=== PATIENT | male | born 1950 | race Caucasian/White ===

== ENCOUNTER 2018-04-28 16:58 | Emergency (ER) | payer OTHER ==
--- NOTE | 2018-04-28 17:38 | RAD REPORT ---
EXAM DESCRIPTION: CT - Ct Stroke Brain Wo Cont - 04/28/2018 5:27 pm CLINICAL HISTORY: Right eye visual loss, history of CVA CLINICAL HISTORY: None. TECHNIQUE: Axial 5 millimeter thick images of the head were obtained without IV contrast. All CT scans are performed using dose optimization technique as appropriate and may include automated exposure control or mA/KV adjustment according to patient size. FINDINGS: No intracranial hemorrhage, mass, or cerebral edema. A 10 millimeter area of diminished at tenuation is seen in the anterior limb of the right internal capsule. Finding could represent acute n onhemorrhagic CVA. This location is not typical for visual loss. No other areas of possible acute CVA seen. Arterial and physiologic calcifications are present. No significant atrophy. No extra-axial fl uid collections. Hamm matter-white matter differentiation is preserved. Visualized portions of the mastoid air cells, paranasal sinuses, and orbits are unremarkable. Findings telephoned to the referring physician 5:34 p.m. IMPRESSION: No intracranial hemorrhage. Small area of diminished attenuation in the anterior limb right internal capsule could represent acut e CVA. This is not a typical location for a visual disturbance. No other acute CVA findings. Followup MR imaging can be obtained as warranted.
[2018-04-28] MEDS ORDERED: FOLIC ACID 5 MG/ML VIAL ONE (17:41)
[2018-04-28] MEDS ORDERED: NA CHLORIDE 0.9% 1,000 ML ONE (17:41)
[2018-04-28 17:43] LABS: Absolute Lymphocytes (CBC) 2.1 K/uL (0.7-4.9); Absolute Monocytes 0.5 K/uL (0.1-1.3); Absolute Neutrophil 4.9 K/uL (1.8-8.0); Basophils % 0.6 % (0-1.3); Eosinophils % 1.4 % (0-4.4); Hematocrit 45.6 % (39.6-49.0); Lymphocytes % 27.2 % (15.3-44.8); MCH 27.6 pg (27.0-35.0); MCV 81.2 fL (80-100); MPV 9.9 fL (7.6-11.3); Monocytes % 6.7 % (3.3-12.3); RBC Red Blood Cell Count 5.62 M/uL (4.33-5.43)
[2018-04-28 17:46] LABS: Protime INR 1.03
[2018-04-28] MEDS ORDERED: ASPIRIN 81 MG CHEWABLE TABLET ONE (17:56)
--- NOTE | 2018-04-28 17:56 | EDPHYS ---
Physician Documentation [facility] Name: Caleb Palacios Age: 67 yrs Sex: Male : 1950 Arrival Date: 04/28/2018 Time: 16:59 Bed 4 Private MD: ED Physician Rashard Partida HPI: 04/28 17:24 This 67 yrs old Male presents to ER via Ambulatory with complaints of Sudden von blurred vision-r eye. 17:24 The patient is experiencing decreased vision. Onset: The symptoms/episode von began/occurred just prior to arrival. Duration: the symptoms are continuous. Aggravated by nothing. Alleviated by nothing. Associated signs and symptoms: Pertinent positives: None. The patient has not experienced similar symptoms in the past. 17:29 Patient wears glasses. Severity of symptoms: At their worst the symptoms were mild in von the emergency department the symptoms are unchanged. Historical: - Allergies: 17:55 No Known Allergies; sg - Home Meds: 17:42 benazepril oral oral [Active]; amlodipine 10 mg tab 1 tab once daily [Active]; sg hydrochlorothiazide 12.5 mg Oral tab 1 tab once daily [Active]; aspirin 81 mg Oral chew 1 tab once daily [Active]; - PMHx: 17:42 Hypertension; Pre-Glaucoma; sg - PSHx: 17:55 None; sg - Immunization history:: Adult Immunizations up to date. - Social history:: Smoking status: Patient/guardian denies using tobacco. - Family history:: not pertinent. - Ebola Screening: : Patient negative for fever greater than or equal to 101.5 degrees Fahrenheit, and additional compatible Ebola Virus Disease symptoms Patient denies exposure to infectious person Patient denies travel to an Ebola-affected area in the 21 days before illness onset No symptoms or risks identified at this time. ROS: 17:24 Constitutional: Negative for fever, chills, and weight loss, ENT: Negative for injury, von pain, and discharge, Neck: Negative for injury, pain, and swelling, Cardiovascular: Negative for chest pain, palpitations, and edema, Respiratory: Negative for shortness of breath, cough, wheezing, and pleuritic chest pain, Abdomen/GI: Negative for abdominal pain, nausea, vomiting, diarrhea, and constipation, Back: Negative for injury and pain, : Negative for injury, bleeding, discharge, and swelling, MS/Extremity: Negative for injury and deformity, Skin: Negative for injury, rash, and discoloration, Neuro: Negative for headache, weakness, numbness, tingling, and seizure, Psych: Negative for depression, anxiety, suicide ideation, homicidal ideation, and hallucinations, Allergy/Immunology: Negative for hives, rash, and allergies, Endocrine: Negative for neck swelling, polydipsia, polyuria, polyphagia, and marked weight changes, Hematologic/Lymphatic: Negative for swollen nodes, abnormal bleeding, and unusual bruising. 17:24 Eyes: Positive for visual disturbance. 17:29 Eyes: Positive for ovn Exam: 17:24 Constitutional: This is a well developed, well nourished patient who is awake, alert, von and in no acute distress. Head/Face: Normocephalic, atraumatic. Eyes: Pupils equal round and reactive to light, extra-ocular motions intact. Lids and lashes normal. Conjunctiva and sclera are non-icteric and not injected. Cornea within normal limits. Periorbital areas with no swelling, redness, or edema. ENT: Nares patent. No nasal discharge, no septal abnormalities noted. Tympanic membranes are normal and external auditory canals are clear. Oropharynx with no redness, swelling, or masses, exudates, or evidence of obstruction, uvula midline. Mucous membranes moist. Neck: Trachea midline, no thyromegaly or masses palpated, and no cervical lymphadenopathy. Supple, full range of motion without nuchal rigidity, or vertebral point tenderness. No Meningismus. Chest/axilla: Normal chest wall appearance and motion. Nontender with no deformity. No lesions are appreciated. Cardiovascular: Regular rate and rhythm with a normal S1 and S2. No gallops, murmurs, or rubs. Normal PMI, no JVD. No pulse deficits. Respiratory: Lungs have equal breath sounds bilaterally, clear to auscultation and percussion. No rales, rhonchi or wheezes noted. No increased work of breathing, no retractions or nasal flaring. Abdomen/GI: Soft, non-tender, with normal bowel sounds. No distension or tympany. No guarding or rebound. No evidence of tenderness throughout. Back: No spinal tenderness. No costovertebral tenderness. Full range of motion. Skin: Warm, dry with normal turgor. Normal color with no rashes, no lesions, and no evidence of cellulitis. MS/ Extremity: Pulses equal, no cyanosis. Neurovascular intact. Full, normal range of motion. Neuro: Awake and alert, GCS 15, oriented to person, place, time, and situation. Cranial nerves II-XII grossly intact. Motor strength 5/5 in all extremities. Sensory grossly intact. Cerebellar exam normal. Normal gait. Psych: Awake, alert, with orientation to person, place and time. Behavior, mood, and affect are within normal limits. 17:24 Cardiovascular: Rate: normal, Rhythm: regular, Pulses: no pulse deficits are appreciated, Heart sounds: normal, Edema: is not appreciated, JVD: is not appreciated. 17:49 Neuro: Orientation: is normal, appropriate for stated age, no acute changes, Mentation: von is normal, appropriate for stated age, no acute changes, Memory: is normal, appropriate for stated age, no acute changes, Cranial nerves: grossly normal, is grossly normal based on the patient's age, no acute changes, Cerebellar function: is grossly normal, is grossly normal based on the patient's age, no acute changes, Motor: is normal, is grossly normal based on the patient's age, no acute changes, moves all fours, strength is normal, strength is 5/5 in all extremities, Sensation: no obvious gross deficits, Gait: is steady, seizure activity, is not displayed by the patient. Vital Signs: 17:06 BP 154 / 90; Pulse 65; Resp 16; Temp 97.3; Pulse Ox 98% on R/A; Weight 113.4 kg; Height la1 6 ft. 3 in. (190.50 cm); 18:08 BP 144 / 89; Pulse 56; Resp 17; Temp 97.3; Pulse Ox 99% on R/A; Pain 0/10; sg 19:14 BP 180 / 96; Pulse 54; Resp 16; Pulse Ox 99% on R/A; mt 19:55 BP 170 / 94; Pulse 63; Resp 16; Pulse Ox 99% on R/A; mt 17:06 Body Mass Index 31.25 (113.40 kg, 190.50 cm) la1 NIH Stroke Scale Scores: 17:19 NIHSS Score: 0 sg 18:09 NIHSS Score: 0 von [place] Coma Score: 18:08 Eye Response: spontaneous(4). Verbal Response: oriented(5). Motor Response: obeys sg commands(6). Total: 15. MDM: 17:10 Patient medically screened. [facility] [place] 17:30 Data reviewed: vital signs, nurses notes, lab test result(s), EKG, radiologic studies, [facility] [place] CT scan, doppler, plain films. 04/28 17:16 Order name: Basic Metabolic Panel; Complete Time: 18:33 cp 04/28 17:16 Order name: CBC with Diff; Complete Time: 18:33 cp 04/28 17:16 Order name: LFT's; Complete Time: 18:33 cp 02 17:16 Order name: Magnesium; Complete Time: 18:33 cp 04/28 17:16 Order name: NT PRO-BNP; Complete Time: 18:33 cp /02 17:16 Order name: PT-INR; Complete Time: 18:33 cp 02 17:13 Order name: CT Stroke Brain w/o Contrast; Complete Time: 18:33 bd 04/28 17:16 Order name: Troponin (emerg Dept Use Only); Complete Time: 18:33 cp 04/28 17:16 Order name: XRAY Chest (1 view); Complete Time: 18:33 cp 02 17:23 Order name: CRP; Complete Time: 18:33 von 04/28 17:23 Order name: ESR; Complete Time: 18:33 von /02 17:28 Order name: US Carotid Artery Bilateral [facility] [place] 04/28 17:16 Order name: EKG; Complete Time: 17:18 cp 04/28 17:16 Order name: Cardiac monitoring; Complete Time: 17:39 cp 04/28 17:16 Order name: EKG - Nurse/Tech; Complete Time: 17:39 cp 02 17:16 Order name: IV Saline Lock; Complete Time: 17:39 cp 02 17:16 Order name: Labs collected and sent; Complete Time: 17:39 cp /02 17:16 Order name: O2 Per Protocol; Complete Time: 17:39 cp /02 17:16 Order name: O2 Sat Monitoring; Complete Time: 17:39 cp Administered Medications: 17:38 Drug: foLIC Acid 1 mg Route: IVPB; Site: right antecubital; sg 17:40 Follow up: Response: No adverse reaction; IV Status: Completed infusion sg 17:39 Drug: NS 0.9% 1000 ml Route: IV; Rate: 1 bolus; Site: right antecubital; sg 19:08 Follow up: Response: No adverse reaction; IV Status: Completed infusion; IV Intake: sg 990ml 17:39 CANCELLED (Duplicate Order): Aspirin Chewable Tablet 324 mg PO once; 81 mg tablets x 4 von 17:54 Drug: Aspirin 81 mg Route: PO; sg 19:08 Follow up: Response: No adverse reaction sg 17:54 Drug: PlaVIX 75 mg Route: PO; sg 19:08 Follow up: Response: No adverse reaction sg Point of Care Testing: Blood Glucose: 17:14 Blood Glucose: 90 mg/dL; la1 Ranges: Critical Glucose Levels:Adult <50 mg/dl or >400 mg/dl <40 mg/dl or >180 mg/dl Disposition: 04/28/18 17:55 Transfer ordered to [facility]. 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 - Reason for transfer: Higher level of care. - Accepting physician is to [facility], neuro. - Condition is Fair. - Problem is new. - Symptoms are unchanged. NIH Stroke Scale - NIH Stroke Score Date: 04/28/2018 Time: 17:19 Total Score = 0 1a. Level of Consciousness (LOC) - 0(Alert) 1b. Level of Consciousness (LOC) (Year \T\ Age) - 0(Both) 1c. LOC Commands (Open \T\ Closes Eyes/Animal Care Worker) - 0(Both) 2. Best Gaze (Lateral Gaze Paresis) - 0(Normal) 3. Visual Field Loss - 0(No visual loss) 4. Facial Palsy - 0(Normal) 5a. Left Arm: Motor (10-second hold) - 0(No drift) 5b. Right Arm: Motor (10-second hold) - 0(No drift) 6a. Left Leg: Motor (5-second hold - always test supine) - 0(No drift) 6b. Right Leg: Motor (5-second hold - always test supine) - 0(No drift) 7. Limb Ataxia (finger/nose \T\ heel/santoyo - test with eyes open) - 0(Absent) 8. Sensory Loss (pinprick arms/legs/face) - 0(Normal) 9. Best Language: Aphasia (description/naming/reading) - 0(No aphasia) 10. Dysarthria (speech clarity - read or repeat words) - 0(Normal) 11. Extinction and Inattention (visual/tactile/auditory/spatial/personal) - 0(No abnormality) Initials: rayna NIH Stroke Scale - NIH Stroke Score Date: 04/28/2018 Time: 18:09 Total Score = 0 1a. Level of Consciousness (LOC) - 0(Alert) 1b. Level of Consciousness (LOC) (Year \T\ Age) - 0(Both) 1c. LOC Commands (Open \T\ Closes Eyes/Animal Care Worker) - 0(Both) 2. Best Gaze (Lateral Gaze Paresis) - 0(Normal) 3. Visual Field Loss - 0(No visual loss) 4. Facial Palsy - 0(Normal) 5a. Left Arm: Motor (10-second hold) - 0(No drift) 5b. Right Arm: Motor (10-second hold) - 0(No drift) 6a. Left Leg: Motor (5-second hold - always test supine) - 0(No drift) 6b. Right Leg: Motor (5-second hold - always test supine) - 0(No drift) 7. Limb Ataxia (finger/nose \T\ heel/santoyo - test with eyes open) - 0(Absent) 8. Sensory Loss (pinprick arms/legs/face) - 0(Normal) 9. Best Language: Aphasia (description/naming/reading) - 0(No aphasia) 10. Dysarthria (speech clarity - read or repeat words) - 0(Normal) 11. Extinction and Inattention (visual/tactile/auditory/spatial/personal) - 0(No abnormality) Initials: von Signatures: Dispatcher [employer] EDMS Romain Alexis RN RN Rashard Lopez MD MD cha Page, Corey, PA PA cp Davies, Jonathon RN RN jd3 Corrections: (The following items were deleted from the chart) 17:39 17:39 Aspirin Chewable Tablet 324 mg PO once; 81 mg tablets x 4 ordered. von longoria 20:31 17:55 04/28/2018 17:55 Transfer ordered to [facility]. jd3 Diagnosis is Cerebral infarction - visual changes, acute to subacute right internal capsule ischemic infarct. Reason for transfer: Higher level of care. Accepting physician is to [facility], neuro. Condition is Fair. Problem is new. Symptoms are unchanged. von
--- NOTE | 2018-04-28 17:56 | ER ---
Nurse's Notes [facility] Name: Caleb Palacios Age: 67 yrs Sex: Male : 1950 Arrival Date: 04/28/2018 Time: 16:59 Bed 4 Private MD: Diagnosis: Cerebral infarction-visual changes, acute to subacute right internal capsule ischemic infarct Presentation: 04/28 17:14 Presenting complaint: Patient states: I was driving and suddenly felt a twitch in my la1 right and now it seems like there is a cloud in my vision. Transition of care: patient was not received from another setting of care. Onset of symptoms was April 28, 2018 at 14:30. Risk Assessment: Do you want to hurt yourself or someone else? Patient reports no desire to harm self or others. Initial Sepsis Screen: Does the patient meet any 2 criteria? No. Patient's initial sepsis screen is negative. Does the patient have a suspected source of infection? No. Patient's initial sepsis screen is negative. Care prior to arrival: None. 17:14 Method Of Arrival: Ambulatory la1 17:14 Acuity: ADONIS 2 la1 Historical: - Allergies: 17:55 No Known Allergies; sg - Home Meds: 17:42 benazepril oral oral [Active]; amlodipine 10 mg tab 1 tab once daily [Active]; sg hydrochlorothiazide 12.5 mg Oral tab 1 tab once daily [Active]; aspirin 81 mg Oral chew 1 tab once daily [Active]; - PMHx: 17:42 Hypertension; Pre-Glaucoma; sg - PSHx: 17:55 None; sg - Immunization history:: Adult Immunizations up to date. - Social history:: Smoking status: Patient/guardian denies using tobacco. - Family history:: not pertinent. - Ebola Screening: : Patient negative for fever greater than or equal to 101.5 degrees Fahrenheit, and additional compatible Ebola Virus Disease symptoms Patient denies exposure to infectious person Patient denies travel to an Ebola-affected area in the 21 days before illness onset No symptoms or risks identified at this time. Screenin:20 Abuse screen: Denies threats or abuse. Denies injuries from another. Nutritional sg screening: No deficits noted. Tuberculosis screening: No symptoms or risk factors identified. Never had TB. Fall Risk None identified. 17:25 The patient has not been NPO before screening. The patient is alert, able to follow sg commands. The patient does not exhibit slurred or garbled speech The patient is not exhibiting difficulty speaking. The patient does not exhibit difficulty understanding words. The patient is able to swallow own secretions with no drooling or need for suction. Patient tolerated one teaspoon of water. No drooling, immediate coughing, gurgling, or clearing of the throat was noted. The patient tolerated 90mL of water. No drooling, immediate coughing, gurgling, or clearing of the throat was noted. The patient passed the bedside swallow screening. Oral medications may be given as ordered. Contact Physician for further diet orders. Provider notified of bedside swallow screening results: Rashard Partida MD. Assessment: 17:19 General: Appears in no apparent distress. well groomed, well developed, well nourished, sg Behavior is calm, cooperative, appropriate for age. Pain: Denies pain. Neuro: Level of Consciousness is awake, alert, obeys commands, Oriented to person, place, time, situation, [employer] Teacher are equal bilaterally Moves all extremities. Full function Gait is steady, Speech is normal, Facial symmetry appears normal, Pupils are PERRLA, Reports vision described as being cloudy, almost like ice is covering my eye. Cardiovascular: Heart tones S1 S2 present Capillary refill is brisk in bilateral fingers Patient's skin is warm and dry. Chest pain is denied. Respiratory: Airway is patent Respiratory effort is even, unlabored, Respiratory pattern is regular, symmetrical. 17:19 GI: No signs and/or symptoms were reported involving the gastrointestinal system. : sg No signs and/or symptoms were reported regarding the genitourinary system. EENT: Eyes are tearing on right eye Sclera/Cornea are reddened in right eye Nares are clear bilaterally Throat is clear. Derm: Skin is pink, warm \T\ dry. Musculoskeletal: No signs and/or symptoms reported regarding the musculoskeletal system. 18:30 Reassessment: pt and pt family updated on POC and need for transfer, at sg bedside updating pt and pt family. 18:40 Reassessment: Patient appears in no apparent distress at this time. Patient and/or sg family updated on plan of care and expected duration. Pain level reassessed. attempt to call report, transfer center requests a call back for reports at 1920 for pt report. 19:40 Reassessment: Patient appears in no apparent distress at this time. No changes from jd3 previously documented assessment. Patient and/or family updated on plan of care and expected duration. Pain level reassessed. Patient is alert, oriented x 3, equal unlabored respirations, skin warm/dry/pink. 20:09 Reassessment: Patient appears in no apparent distress at this time. No changes from jd3 previously documented assessment. Patient and/or family updated on plan of care and expected duration. Pain level reassessed. Patient is alert, oriented x 3, equal unlabored respirations, skin warm/dry/pink. report called to Greta BELL at [facility] and transfer form signed. 20:29 Reassessment: Patient appears in no apparent distress at this time. Patient and/or jd3 family updated on plan of care and expected duration. Pain level reassessed. Patient is alert, oriented x 3, equal unlabored respirations, skin warm/dry/pink. report given to EMS. Vital Signs: 17:06 BP 154 / 90; Pulse 65; Resp 16; Temp 97.3; Pulse Ox 98% on R/A; Weight 113.4 kg; Height la1 6 ft. 3 in. (190.50 cm); 18:08 BP 144 / 89; Pulse 56; Resp 17; Temp 97.3; Pulse Ox 99% on R/A; Pain 0/10; sg 19:14 BP 180 / 96; Pulse 54; Resp 16; Pulse Ox 99% on R/A; mt 19:55 BP 170 / 94; Pulse 63; Resp 16; Pulse Ox 99% on R/A; mt 17:06 Body Mass Index 31.25 (113.40 kg, 190.50 cm) la1 [place] Coma Score: 18:08 Eye Response: spontaneous(4). Verbal Response: oriented(5). Motor Response: obeys commands(6). Total: 15. NIH Stroke Scale Scores: 17:19 NIHSS Score: 0 18:09 NIHSS Score: 0 [facility] ED Course: 16:59 Patient arrived in ED. as 17:10 Rashard Partida MD is Attending Physician. [facility] 17:10 Initial lab(s) drawn, by ga, sent to lab. Inserted saline lock: 20 gauge in right sg antecubital area, using aseptic technique. Blood collected. 17:15 Triage completed. la1 17:15 Arm band placed on right wrist. la1 17:18 Romain Alexis, RN is Primary Nurse. sg 17:29 CT Stroke Brain w/o Contrast In Process Unspecified. EDMS 17:35 XRAY Chest (1 view) In Process Unspecified. EDMS 17:39 EKG done, by ED staff, reviewed by Rashard Partida MD. jb1 18:52 US Carotid Artery Bilateral In Process Unspecified. EDMS 18:57 Ultrasound completed. Patient tolerated well. sg3 19:54 Albin Galdamez, RN is Primary Nurse. jd3 20:29 Patient has correct armband on for positive identification. Bed in low position. Call jd3 light in reach. Side rails up X2. 20:30 No provider procedures requiring assistance completed. Patient transferred, IV remains jd3 in place. Administered Medications: 17:38 Drug: foLIC Acid 1 mg Route: IVPB; Site: right antecubital; sg 17:40 Follow up: Response: No adverse reaction; IV Status: Completed infusion sg 17:39 Drug: NS 0.9% 1000 ml Route: IV; Rate: 1 bolus; Site: right antecubital; sg 19:08 Follow up: Response: No adverse reaction; IV Status: Completed infusion; IV Intake: sg 990ml 17:39 CANCELLED (Duplicate Order): Aspirin Chewable Tablet 324 mg PO once; 81 mg tablets x 4 von 17:54 Drug: Aspirin 81 mg Route: PO; sg 19:08 Follow up: Response: No adverse reaction sg 17:54 Drug: PlaVIX 75 mg Route: PO; sg 19:08 Follow up: Response: No adverse reaction sg Point of Care Testing: Blood Glucose: 17:14 Blood Glucose: 90 mg/dL; la1 Ranges: Intake: 19:08 IV: 990ml; Total: 990ml. sg Outcome: 17:55 ER care complete, transfer ordered by . [facility] 20:30 Transferred by ground EMS to [facility], Transfer form completed. jd3 X-rays sent w/ patient. 20:30 Condition: stable 20:30 Instructed on the need for transfer, Demonstrated understanding of instructions. 20:31 Patient left the ED. jd3 NIH Stroke Scale - NIH Stroke Score Date: 04/28/2018 Time: 17:19 Total Score = 0 1a. Level of Consciousness (LOC) - 0(Alert) 1b. Level of Consciousness (LOC) (Year \T\ Age) - 0(Both) 1c. LOC Commands (Open \T\ Closes Eyes/Rn Home Care) - 0(Both) 2. Best Gaze (Lateral Gaze Paresis) - 0(Normal) 3. Visual Field Loss - 0(No visual loss) 4. Facial Palsy - 0(Normal) 5a. Left Arm: Motor (10-second hold) - 0(No drift) 5b. Right Arm: Motor (10-second hold) - 0(No drift) 6a. Left Leg: Motor (5-second hold - always test supine) - 0(No drift) 6b. Right Leg: Motor (5-second hold - always test supine) - 0(No drift) 7. Limb Ataxia (finger/nose \T\ heel/santoyo - test with eyes open) - 0(Absent) 8. Sensory Loss (pinprick arms/legs/face) - 0(Normal) 9. Best Language: Aphasia (description/naming/reading) - 0(No aphasia) 10. Dysarthria (speech clarity - read or repeat words) - 0(Normal) 11. Extinction and Inattention (visual/tactile/auditory/spatial/personal) - 0(No abnormality) Initials: NIH Stroke Scale - NIH Stroke Score Date: 04/28/2018 Time: 18:09 Total Score = 0 1a. Level of Consciousness (LOC) - 0(Alert) 1b. Level of Consciousness (LOC) (Year \T\ Age) - 0(Both) 1c. LOC Commands (Open \T\ Closes Eyes/Rn Home Care) - 0(Both) 2. Best Gaze (Lateral Gaze Paresis) - 0(Normal) 3. Visual Field Loss - 0(No visual loss) 4. Facial Palsy - 0(Normal) 5a. Left Arm: Motor (10-second hold) - 0(No drift) 5b. Right Arm: Motor (10-second hold) - 0(No drift) 6a. Left Leg: Motor (5-second hold - always test supine) - 0(No drift) 6b. Right Leg: Motor (5-second hold - always test supine) - 0(No drift) 7. Limb Ataxia (finger/nose \T\ heel/santoyo - test with eyes open) - 0(Absent) 8. Sensory Loss (pinprick arms/legs/face) - 0(Normal) 9. Best Language: Aphasia (description/naming/reading) - 0(No aphasia) 10. Dysarthria (speech clarity - read or repeat words) - 0(Normal) 11. Extinction and Inattention (visual/tactile/auditory/spatial/personal) - 0(No abnormality) Initials: von Signatures: Dispatcher [employer] EDEphraim Mckee jb1 Romain Alexis RN RN sg Rashard Partida MD MD cha Martinez, Jaylon Hernadez, RN RN la1 Farzana Phelps mt, Jonathon, RN RN jd3 Xochilt Hopper 3 Corrections: (The following items were deleted from the chart) 20:09 19:40 Reassessment: Patient appears in no apparent distress at this time. No jd3 changes from previously documented assessment. Patient and/or family updated on plan of care and expected duration. Pain level reassessed. Patient is alert, oriented x 3, equal unlabored respirations, skin warm/dry/pink. report called to Greta BELL at [facility] and transfer form signed. jd3
[2018-04-28] MEDS ORDERED: CLOPIDOGREL 75 MG TABLET ONE (17:57)
--- NOTE | 2018-04-28 18:00 | RAD REPORT ---
EXAM DESCRIPTION: RAD - Chest Single View - 04/28/2018 5:43 pm CLINICAL HISTORY: Stroke protocol chest film COMPARISON: None. TECHNIQUE: AP portable chest image was obtained 1721 hour . FINDINGS: Lungs are clear. Heart and vasculature are normal. No measurable pleural effusion and no p neumothorax. No acute bony abnormality seen. No acute aortic findings suspected. IMPRESSION: No acute cardiopulmonary process.
[2018-04-28 18:12] LABS: ALT/SGPT 37 U/L (12-78); AST/SGOT 13 U/L (15-37); Albumin 3.6 g/dL (3.4-5.0); Alkaline Phosphatase 65 U/L (45-117); BUN Blood Urea Nitrogen 19 mg/dL (7-18); Bicarbonate 29 mmol/L (21-32); Bilirubin Direct 0.1 mg/dL (0-0.2); Bilirubin Total 0.6 mg/dL (0.2-1.0); Glucose Level 97 mg/dL (74-106); Magnesium 2.3 mg/dL (1.8-2.4); NT PRO-BNP 19 pg/mL (<125); Potassium 3.6 mmol/L (3.5-5.1); Protein, Total 7.2 g/dL (6.4-8.2); Sodium Level 142 mmol/L (136-145); Troponin (Emerg Dept Use Only) < 0.02 ng/mL (0.0-0.045)
--- NOTE | 2018-04-28 19:31 | RAD REPORT ---
EXAM DESCRIPTION: US - CP - 04/28/2018 6:52 pm CLINICAL HISTORY: Acute onset right visual loss COMPARISON: None. TECHNIQUE: Real-time sonographic evaluation of both carotid systems was performed. Hamm scale and Do ppler interrogation were performed with waveform tracing bilaterally. FINDINGS: Normal high resistance waveforms are noted in both external carotid arteries. The common c arotid arteries and internal carotid arteries show normal low resistance waveforms. Minimal soft plaquing in the right carotid bulb without significant luminal narrowing. No dissection is seen. No significant plaquing in the left carotid vasculature. Peak systolic and end diastolic mark ocity values and the ICA/CCA ratios are in the non-hemodynamically significant range. Antegrade flow seen in both vertebral arteries. Velocity values and ratios were recorded and are retained in the patient's imaging records. IMPRESSION: No significant atherosclerotic changes noted. No evidence of a hemodynamically significant stenosis.
--- NOTE | 2018-04-29 07:40 | EKG ---
Test Date: 2018-04-28 Test Time: 17:17:13 Plate Finisher: EPI MEASUREMENT RESULTS: Intervals: Rate: 60 OK: 132 QRSD: 88 QT: 424 QTc: 424 [employer]: P: 50 OK: 132 QRS: 54 T: 56 INTERPRETIVE STATEMENTS: Normal sinus rhythm Normal ECG Compared to ECG 12/28/2005 07:01:03 Sinus bradycardia no longer present Electronically Signed On 04-29-18 07:38:46 SUPERVISOR PIPELINES by Marco A Soliz
== END 2018-04-28 20:31 | disposition short-term general hospital (02) ==
LOC: ER 16:58
DX: I63.89 Other cerebral infarction (principal); I10 Essential (primary) hypertension; Z79.82 Long term (current) use of aspirin
CPT/HCPCS: 36415; 70450; 71045; 80048; 80076; 82962; 83735; 83880; 84484; 85025; 85610; 85652; 86140; 93005; 93880; 96361; 96374; 99285; J7030

== ENCOUNTER 2019-12-31 18:33 | Emergency (ER) | payer OTHER ==
--- OUTSIDE RECORDS SUMMARY | 2019-12-31 18:36 | XMS REPORT | Clinical Summary ---
:1950 Author Organization [facility] Address [address] [place] [address] Care Team Providers Name Role Phone Pcp, No Primary Care Provider Unavailable Allergies No Known Allergies Medications Medication Sig Dispensed Refills Start Date End Date Status aspirin 81 MG EC tablet Take 81 mg by 0 Active mouth daily. benazepril (LOTENSIN) 40 MG Take 40 mg by 0 Active tablet mouth daily. amLODIPine (NORVASC) 10 MG Take 10 mg by 0 Active tablet mouth daily. hydroCHLOROthiazide Take 12.5 mg 0 Active (HYDRODIURIL) 12.5 MG by mouth tablet daily. tadalafil (CIALIS) 5 MG Take 5 mg by 0 Active tablet mouth daily. TRAVATAN Z 0.004 % Drop 0 02/07/2018 Active ophthalmic drops Active Problems Problem Noted Date Blurry vision 04/28/2018 Family History Medical History Relation Name Comments Cancer Brother COPD Father Heart disease Father Heart disease Mother Kidney disease Mother Diabetes Sister Kidney disease Sister Relation Name Status Comments Brother Alive Father Mother Sister Social History Tobacco Use Types Packs/Day Years Used Date Never Smoker Smokeless Tobacco: Never Used Tobacco Cessation: Counseling Given: No Alcohol Use Drinks/Week oz/Week Comments Yes 2 Glasses of wine 1.2 weekends Sex Assigned at Date Recorded Not on file Job Start Date Occupation Industry Not on file Not on file Not on file Travel History Travel Start Travel End No recent travel history available. Last Filed Vital Signs Not on file Plan of Treatment Not on file Results Not on fileafter 12/30/2018 Insurance Payer Benefit Plan / Group Subscriber ID Type Phone A ddress MEDICARE MEDICARE PART A xxxxxxxxxx Medicare [facility] xxxxxxxxx CARE Advance Directives For more information, please contact:[place] [id number] [facility] Bed[facility] [place], [place] [phone] Code Status Date Activated Date Inactivated Comments Full Code 04/28/2018 10:31 PM This code status was determined by: Patient
--- OUTSIDE RECORDS SUMMARY | 2019-12-31 18:37 | XMS REPORT | Continuity of Care Document ---
:1950 Author Organization [facility] t Address [address] [place] [address] Care Team Providers Name Role Phone Pcp Primary Care Physician Unavailable Brianna DURÁN Attending Clinician Unavailable Brianna DURÁN Admitting Clinician Unavailable Problems Condition Condition Condition Status Onset Resolution Last Treating Co mments Source Name Details Category Date Date Treatment Clinician Date Blurry Blurry Disease Active 2017-05 [facility] vision vision 06-29 [facility] - 00:00: Medical 00 [place] Allergies, Adverse Reactions, Alerts This patient has no known allergies or adverse reactions. Family History Family Member Diagnosis Comments Start Date Stop Date Source Natural brother Cancer [place] Natural father COPD [facility] Natural father Heart disease [facility] Natural mother Heart disease [facility] Natural mother Kidney disease [facility] Natural sister Diabetes [facility] Natural sister Kidney disease [facility] Social History Social Habit Start Date Stop Date Quantity Comments Source Sex Assigned At [facility] Alcohol Comment 2018-04-28 2018-04-28 weekends [facility] 00:00:00 00:00:00 [facility] Smoking Status Start Date Stop Date Source Never smoker [facility] Medications Ordered Filled Start Stop Current Ordering Indication Dosage Frequency Signature Comments Components Source Medication Medication Date Date Medication? Clinician (SIG) Name Name tadalafil 2017-05 Yes 5mg QD Take 5 mg [facility] (CIALIS) 5 06-29 by mouth [facility] - MG tablet 22:40: daily. Medica l [address] [place] [address] aspirin 81 2017-05 Yes 81mg QD Take [address] MG EC 2-02 by mouth [facility] - tablet 22:36: daily. Medical 21 [place] benazepril 2017-05 Yes 40mg QD Take [address] (LOTENSIN) 2-02 by mouth [facility] - 40 MG 22:36: daily. Medical tablet 21 [place] amLODIPine 2017-05 Yes 10mg QD Take [address] (NORVASC) 2-02 by mouth [facility] - 10 MG 22:36: daily. Medical tablet 21 [place] hydroCHLORO 2017-05 Yes 12.5mg QD Take 12.[address] [facility] thiazide 2-02 mg by [facility] - (HYDRODIURI 22:36: mouth Medic al L) 12.5 MG 21 daily. Center tablet TRAVATAN Z Yes [facility] 0.004 % 02-07 [facility] - Drop 00:00: Medical ophthalmic 00 Center drops Procedures This patient has no known procedures. Results Test Description Test Time Test Comments Results Result Comments Source CSF CULTURE + GRAM STAIN 2018-05-04 11:37:00 Test Item Value Reference Range Interpretation Comme nts CULTURE (BEAKER) (test code = 1095) No growth GRAM STAIN RESULT (BEAKER) (test code = 1123) No WBCs GRAM STAIN RESULT (BEAKER) (test code = 26482) No organisms seen [id number] 18:10:00Medical Cytology Report Case: [id number] Authorizing Provider: Sisi Haas Collected: 05/01/2018 1539 MD Sondra Ordering Location: [address] Received: 05/02/2018 1005 Service Pathologist: Beck Alvarez MD Specimen: CSF CEREBROSPINAL FLUID (CYT OSPINS): - NEGATIVE FOR MALIGNANCY Signing Pathologist Direct Phone Line: [phone] signed by Beck Alvarez MD on 05/02/2018 at 6:10 [id number] visionCEREBROSPINALFLUID0.5 mls colorless; 2 cytospinsCollected: [id number]: [id number] [facility], Department of Pathology, [address] [place] [address], [place] [address], [facility], Department of [facility]ology, [address] [place] [address], [facility], [facility] of [facility], [address] [place] [address], QMGV CYTOMETRY [id number] 11:09:00 Test Item Value Reference Range Interpretation Comments FLOW CYTOMETRY RESULT See Separate Report POINTER (BEAKER) (test code = 2758) FLOW CYTOMETRY AP CASE # [id number] (BEAKER) (test code = 2759) FLOW [id number] 09:21:00Flow Cytometry Report Case: [id number] Authorizing Provider: Sisi Haas Collected: 05/01/2018 Юлия Amaro MD Ordering Location: [address] Received: 05/01/2018 1592 Service Pathologist: Sherwin Cardoza MD Specimen: Other CSF, FLOW CYTOMETRY:HEMATOLYMPHOID EVENTS ARE SCARCE.CORRELATION WITH MORPHOLOGIC FINDINGS REQUIRED.Electronically signedby Sherwin Cardoza MD on 05/02/2018 at 9:21 [id number] changesCSFCD8, surface-kappa, CD56, surface-lambda, CD5, CD19, CD10, CD3, CD20, CD4, [id number] Viability: 99.8% Blasts: Not identified.Lymphocytes: Bright CD45+ lymphocytes comprise less than 1% of total cells and are almost entirely comprised of T cells with a CD4:CD8 ratio of 3.7. B cells are virtually absent.Myeloid/monocytic populations: No significant population identified. The remaining events analyzed represent nonviable cells, non-hematolymphoid cells, and/or debris. These tests were developed and their performance charac teristics determined by [facility]. They have not been cleared or approved by the U.S. Food andDrug Administration. The FDA has determined that such clearance or approval is not necessary. It should not be regarded as investigational or for research. This laboratory is certified under the Clinical Laboratory Improvement Amendments of 1988 ("CLIA") as qualified to perform high- complexity clinical testing.GLUCOSE, [id number] 16:15:00 Test Item Value Reference Range Interpretation Comments GLUCOSE CSF (BEAKER) (test code = 56 mg/dL 40-70 406) PROTEIN, [id number] 16:15:00 Test Item Value Reference Range Interpretation Comments PROTEIN CSF (BEAKER) (test code = 37 mg/dL 15-45 378) CSF CELL COUNT [id number] 16:14:00 Test Item Value Reference Range Interpretation Comments APPEARANCE CSF (BEAKER) Clear Clear (test code = 407) COLOR CSF (BEAKER) Colorless Colorless (test code = 408) RBC CSF (BEAKER) (test 450 /cu mm 0-5 H code = 409) WBC CSF (BEAKER) (test 0 /cu mm <=5 code = 1020) RBCS FRESH (BEAKER) 75% Fresh, 25% (test code = 1444) Crenated NUMBER OF CELLS DIFF'D 0 (BEAKER) (test code = 1591) TUBE NUMBER CSF 1 (BEAKER) (test code = 2678) PERIPHERAL BLOOD SMEAR - HOLD [id number] 19:16:00 Test Item Value Reference Range Interpretation Comments PERIPHERAL SMEAR SAVE saved 2 smea rs are prepared (BEAKER) (test code = 1815) [id number] 18:45:00 Test Item Value Reference Range Interpretation Comments RPR SCREEN (BEAKER) (test code = Nonreactive Nonreactive 420) VITAMIN B12 AND [id number] 12:13:00 Test Item Value Reference Range Interpretation Comments VITAMIN B12 (BEAKER) (test code = 495 pg/mL 213-816 774) FOLATE (BEAKER) (test code = 362) 13.3 ng/mL >=7.0 MR, MRA, BRAIN, WITHOUT [id number] 11:54:00Reason for exam:->Ischemic Stroke EvaluationFINAL REPORT MRA Head CLINICAL HISTORY: Ischemic Stroke, blurry vision, acute/subacute infarct right internal capsule on CT TECHNIQUE: MRA of the head utilizing 3-D xtab-qa-mltoag technique, with 3-D reconstructions. COMPARISON: None FINDINGS: There is no evidence for a hoopa of Cee proximal branch vessel occlusion. There is origin of the right posterior cerebral artery. No aneurysms are seen. IMPRESSION: No evidence for a major hoopa of Cee proximal branch vessel occlusion. MRA Neck CLINICAL HISTORY: Ischemic Stroke, blurry vision, acute/subacute infarct right internal capsule on CT TECHNIQUE: MRA of the neck utilizing 2-D and 3-D rrst-sq-kobqas technique, with 3-D reconstructions. COMPARISON: None FINDINGS: The carotid arteries in the neck are patent including their bifurcations. There is antegrade flow in the vertebral arteries in the neck. IMPRESSION: No evidence of hemodynamically significant stenosis in the cervical carotid or vertebral arteries by NASCET criteria. Signed: Kathy Shrestha Verified Date/Time: 04/29/2018 11:54:27 Reading Location: [address] Neuro Reading Room MR, MRA, NECK, WITHOUT IV [id number] 11:54:00Reason for exam:->Ischemic Stroke EvaluationFINAL REPORT MRA Head CLINICAL HISTORY: Ischemic Stroke, blurry vision, acute/subacute infarct right internal capsule on CT TECHNIQUE: MRA of the head utilizing 3-D zyro-wr-astqzj technique, with 3-D reconstructions. COMPARISON: None FINDINGS: There is no evidence for a hoopa of Cee proximal branch vessel occlusion. There is origin of the right posterior cerebral artery. No aneurysms are seen. IMPRESSION: No evidence for a major hoopa of Cee proximal branch vessel occlusion. MRA Neck CLINICAL HISTORY: Ischemic Stroke, blurry vision, acute/subacute infarct right internal capsule on CT TECHNIQUE: MRA of the neck utilizing 2-D and 3-D idyt-if-xkgpad technique, with 3-D reconstructions. COMPARISON: None FINDINGS: The carotid arteries in the neck are patent including their bifurcations. There is antegrade flow in the vertebral arteries in the neck. IMPRESSION: No evidence of hemodynamically significant stenosis in the cervical carotid or vertebral arteries by NASCET criteria. Signed: Kathy Shrestha Verified Date/Time: 04/29/2018 11:54:27 Reading Location: [address] Neuro Reading Room MR, BRAIN, WITHOUT [id number] 11:48:00Reason for exam:->Ischemic Stroke EvaluationFINAL REPORT MRI Brain without contrast Clinical History: Ischemic Stroke, blurry vision Technique: MRI of the brain utilizing axial T2, FLAIR, GRE, DWI; sagittal and coronal T1-weighted images. Comparisons: None available Findings: There is no evidence of acute infarct or hemorrhage. There is a chronic lacunar infarct in the right anterior basal ganglia. There are a few scattered nonspecific foci of FLAIR signal abnormality in the subcortical and periventricular white matter.There is mild generalized sulcal prominence without hydrocephalus, midline shift, or apparent mass effect. There are no extra-axial fluid collections. The craniocervical junction is preserved. The major intracranial flow-voids appear patent. There is fluid in the right mastoid air cells without visualized central nasopharyngeal obstruction. IMPRESSION: No evidence of acute infarct, hemorrhage, or hydr ocephalus. Chronic lacunar infarct right anterior basal ganglia. Signed: Kathy Shrestha MDReport Verified Date/Time: 04/29/2018 11:48:33 Reading Location: [facility] C013 Neuro Reading Room HEMOGLOBIN [id number] 10:00:00 Test Item Value Reference Range Interpretation Comments HEMOGLOBIN A1C (BEAKER) (test code = 5.3 % 4.3-6.1 368) TSH/FREE T4 IF [id number] 06:05:00 Test Item Value Reference Range Interpretation Comments THYROID STIMULATING HORMONE 2.26 uIU/mL 0.35-4.94 (BEAKER) (test code = 772) LIPID [id number] 05:45:00 Test Item Value Reference Range Interpretation Comments TRIGLYCERIDES (BEAKER) (test code = 102 mg/dL 540) CHOLESTEROL (BEAKER) (test code = 174 mg/dL 631) HDL CHOLESTEROL (BEAKER) (test code 49 mg/dL = 976) LDL CHOLESTEROL CALCULATED (BEAKER) 105 mg/dL (test code = 633) Triglyceride Reference Range: Low Risk <150 Borderline 150-199 High Risk 200-499 Very High Risk >=500Cholesterol Reference Range: Low Risk <200 Borderline 200-239 High Risk >240HDL Cholesterol Reference Range: Low Risk >=60 High Risk <40LDL Cholesterol Reference Range: Optimal <100 Near Optimal 100-129 Borderline 130-159 High 160-189 Very High >=190BASIC METABOLIC [id number] 05:45:00 Test Item Value Reference Range Interpretation Comments SODIUM (BEAKER) 140 meq/L 136-145 (test code = 381) POTASSIUM (BEAKER) 3.4 meq/L 3.5-5.1 L (test code = 379) CHLORIDE (BEAKER) 108 meq/L 98-107 H (test code = 382) CO2 (BEAKER) (test 25 meq/L 22-29 code = 355) BLOOD UREA NITROGEN 15 mg/dL 7-21 (BEAKER) (test code = 354) CREATININE (BEAKER) 0.98 mg/dL 0.57-1.25 (test code = 358) GLUCOSE RANDOM 98 mg/dL 70-105 (BEAKER) (test code = 652) CALCIUM (BEAKER) 8.6 mg/dL 8.4-10.2 (test code = 697) EGFR (BEAKER) (test 76 mL/min/1.73 ESTIMA GREG GFR IS code = 1092) sq m NOT ACCURATE CREATININE CLEARANCE IN PREDICTING GLOMERULAR FILTRATION RATE . ESTIMATED GFR I S NOT APPLICABLE FOR DIALYSIS PATIEN TS. CBC W/PLT COUNT & AUTO [id number] 05:13:00 Test Item Value Reference Range Interpretation Comments WHITE BLOOD CELL COUNT (BEAKER) 7.7 K/ L 3.5-10.5 (test code = 775) RED BLOOD CELL COUNT (BEAKER) 5.40 M/ L 4.63-6.08 (test code = 761) HEMOGLOBIN (BEAKER) (test code = 14.8 GM/DL 13.7-17.5 410) HEMATOCRIT (BEAKER) (test code = 45.2 % 40.1-51.0 411) MEAN CORPUSCULAR VOLUME (BEAKER) 83.7 fL 79.0-92.2 (test code = 753) MEAN CORPUSCULAR HEMOGLOBIN 27.4 pg 25.7-32.2 (BEAKER) (test code = 751) MEAN CORPUSCULAR HEMOGLOBIN CONC 32.7 GM/DL 32.3-36.5 (BEAKER) (test code = 752) RED CELL DISTRIBUTION WIDTH 13.4 % 11.6-14.4 (BEAKER) (test code = 412) PLATELET COUNT (BEAKER) (test 217 K/CU MM 150-450 code = 756) MEAN PLATELET VOLUME (BEAKER) 11.5 fL 9.4-12.4 (test code = 754) NUCLEATED RED BLOOD CELLS 0 /100 WBC 0-0 (BEAKER) (test code = 413) NEUTROPHILS RELATIVE PERCENT 69 % (BEAKER) (test code = 429) LYMPHOCYTES RELATIVE PERCENT 22 % (BEAKER) (test code = 430) MONOCYTES RELATIVE PERCENT 8 % (BEAKER) (test code = 431) EOSINOPHILS RELATIVE PERCENT 1 % (BEAKER) (test code = 432) BASOPHILS RELATIVE PERCENT 0 % (BEAKER) (test code = 437) NEUTROPHILS ABSOLUTE COUNT 5.27 K/ L 1.78-5.38 (BEAKER) (test code = 670) LYMPHOCYTES ABSOLUTE COUNT 1.67 K/ L 1.32-3.57 (BEAKER) (test code = 414) MONOCYTES ABSOLUTE COUNT (BEAKER) 0.58 K/ L 0.30-0.82 (test code = 415) EOSINOPHILS ABSOLUTE COUNT 0.09 K/ L 0.04-0.54 (BEAKER) (test code = 416) BASOPHILS ABSOLUTE COUNT (BEAKER) 0.02 K/ L 0.01-0.08 (test code = 417) IMMATURE GRANULOCYTES-RELATIVE 0 % 0-1 PERCENT (BEAKER) (test code = 5701)
[2019-12-31] MEDS ORDERED: HYDROCODONE/APAP 5/325 MG TAB ONE (20:01)
[2019-12-31] MEDS ORDERED: TETANUS & DIPHTHERIA TOX,ADULT 0.5 ML VIAL ONE (20:01)
--- NOTE | 2019-12-31 20:44 | RAD REPORT ---
EXAM DESCRIPTION: RAD - Hand Left 2 View - 12/31/2019 8:26 pm CLINICAL HISTORY: injury, possible foreign body from catfish COMPARISON: No comparisons FINDINGS: No fracture is identified. There is no dislocation or periosteal reaction noted. No foreig n body or other soft tissue abnormality. IMPRESSION: No foreign body. No acute bone finding.
--- NOTE | 2019-12-31 21:43 | ER ---
Nurse's Notes [facility] Name: Caleb Palacios Age: 69 yrs Sex: Male : 1950 Arrival Date: 12/31/2019 Time: 18:50 Bed 15 Private MD: Diagnosis: Puncture Wound Left Hand Presentation: 12/30 19:31 Chief complaint: Patient states: he was fishing and got a saltwater catfish nakul in his bb left hand the pain is severe radiating up his left arm which occurred approx 2 hours ago. Coronavirus screen: At this time, the client does not indicate any symptoms associated with coronavirus-19. Ebola Screen: No symptoms or risks identified at this time. Initial Sepsis Screen: Does the patient meet any 2 criteria? No. Patient's initial sepsis screen is negative. Does the patient have a suspected source of infection? No. Patient's initial sepsis screen is negative. Risk Assessment: Do you want to hurt yourself or someone else? Patient reports no desire to harm self or others. Onset of symptoms was December 31, 2019. 19:31 Method Of Arrival: Ambulatory bb 19:31 Acuity: ADONIS 3 bb Triage Assessment: 19:33 General: Appears uncomfortable, Behavior is calm, cooperative. Pain: Complains of pain bb in left arm Pain currently is 9 out of 10 on a pain scale. Historical: - Allergies: 19:33 No Known Allergies; bb - Home Meds: 19:33 amlodipine 10 mg tab 1 tab once daily [Active]; aspirin 81 mg Oral chew 1 tab once bb daily [Active]; benazepril Oral [Active]; hydrochlorothiazide 12.5 mg Oral tab 1 tab once daily [Active]; - PMHx: 19:33 Hypertension; Pre-Glaucoma; bb - PSHx: 19:33 right eye surgery; C5; right knee surgery; bb - Immunization history:: Adult Immunizations up to date, Last tetanus immunization: unknown. - Social history:: Smoking status: Patient denies any tobacco usage or history of. Screenin:54 Abuse screen: Denies threats or abuse. Nutritional screening: No deficits noted. mt2 Tuberculosis screening: No symptoms or risk factors identified. Fall Risk None identified. Assessment: 19:30 General: Appears in no apparent distress. uncomfortable, Behavior is calm, cooperative, jb4 appropriate for age. Pain: Complains of pain in Left first web space Pain radiates to left arm Pain currently is 9 out of 10 on a pain scale. Quality of pain is described as aching. Neuro: Level of Consciousness is awake, alert, obeys commands, Oriented to person, place, time, situation. Cardiovascular: Patient's skin is warm and dry. Respiratory: Airway is patent Respiratory effort is even, unlabored, Respiratory pattern is regular, symmetrical. GI: No signs and/or symptoms were reported involving the gastrointestinal system. : No signs and/or symptoms were reported regarding the genitourinary system. EENT: No signs and/or symptoms were reported regarding the EENT system. Derm: Skin is intact, Skin is pink, warm \T\ dry. Musculoskeletal: Circulation, motion, and sensation intact. Range of motion: intact in all extremities. Injury Description: Puncture sustained to Left first web space is superficial. 21:53 Reassessment: Patient and/or family updated on plan of care and expected duration. Pain mt2 level reassessed. Patient is alert, oriented x 3, equal unlabored respirations, skin warm/dry/pink. Patient states symptoms have improved. General: Appears in no apparent distress. Behavior is calm, cooperative. Pain: Denies pain. Vital Signs: 19:31 BP 164 / 90; Pulse 54; Resp 16 S; Temp 98.2(O); Pulse Ox 99% on R/A; Weight 112.49 kg bb (R); Height 6 ft. 3 in. (190.50 cm) (R); Pain 9/10; 20:00 BP 146 / 89; Pulse 52; Resp 16; Pulse Ox 98% on R/A; jb4 21:53 BP 162 / 89; Pulse 61; Resp 16; Pulse Ox 98% on R/A; Pain 0/10; mt2 19:31 Body Mass Index 31.00 (112.49 kg, 190.50 cm) bb ED Course: 18:50 Patient arrived in ED. ds1 19:23 Daniel Garcia MD is Attending Physician. mh7 19:28 Raad Foote, RAY is Primary Nurse. jb4 19:32 Triage completed. bb 19:33 Arm band placed on Patient placed in an exam room, on a stretcher, on pulse oximetry. bb 20:26 Hand Left 2 View XRAY In Process Unspecified. EDUT 21:41 Emmanuel Joseph MD is Referral Physician. 7 21:53 Patient has correct armband on for positive identification. mt2 21:53 No provider procedures requiring assistance completed. Patient did not have IV access mt2 during this emergency room visit. 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 Exp: jb4 07/17/2022. Lot #: [id number]. } Route: IM; Site: left deltoid; 21:55 Follow up: Response: No adverse reaction mt2 21:52 Drug: Ancef 1 grams Route: IM; Site: right gluteus; mt2 21:55 Follow up: Response: No adverse reaction mt2 Outcome: 21:42 Discharge ordered by . 7 21:53 Discharged to home ambulatory. mt2 21:53 Condition: good 21:53 Discharge instructions given to patient, Instructed on discharge instructions, follow up and referral plans. medication usage, Demonstrated understanding of instructions, follow-up care, medications, Prescriptions given X 2. 21:55 Patient left the ED. mt2 Signatures: Dispatcher [employer] [facility] Tabitha Oviedo ds1 Agnes Mathias RN RN bb Raad Foote RN RN jb4 Daniel Garcia MD MD 7 Lisha Paige RN RN mt2
--- NOTE | 2019-12-31 21:43 | EDPHYS ---
Physician Documentation [facility] Name: Caleb Palacios Age: 69 yrs Sex: Male : 1950 Arrival Date: 12/31/2019 Time: 18:50 Bed 15 Private MD: ED Physician Daniel Garcia HPI: 12/30 19:50 This 69 yrs old Male presents to ER via Ambulatory with complaints of L Arm mh7 Pain. 19:50 The patient or guardian complains of injury, pain, that is acute, a puncture wound, mh7 catfish nakul. The complaints affect the left hand. Context: The problem was [place] park, at a fishing, resulted from a penetrating injury, catfish nakul. Onset: The symptoms/episode began/occurred today, at 16:00. Treatment prior to arrival includes: no previous treatment. Modifying factors: The symptoms are alleviated by nothing. the symptoms are aggravated by nothing. Associated signs and symptoms: Pertinent positives: pain, of the left arm, Pertinent negatives: decreased range of motion, deformity, erythema, fever, nausea, numbness, swelling, tingling, vomiting, warmth, weakness. Severity of symptoms: At their worst the symptoms were moderate, earlier today, in the emergency department the symptoms have improved, moderately. Historical: - Allergies: 19:33 No Known Allergies; bb - Home Meds: 19:33 amlodipine 10 mg tab 1 tab once daily [Active]; aspirin 81 mg Oral chew 1 tab once bb daily [Active]; benazepril Oral [Active]; hydrochlorothiazide 12.5 mg Oral tab 1 tab once daily [Active]; - PMHx: 19:33 Hypertension; Pre-Glaucoma; bb - PSHx: 19:33 right eye surgery; C5; right knee surgery; bb - Immunization history:: Adult Immunizations up to date, Last tetanus immunization: unknown. - Social history:: Smoking status: Patient denies any tobacco usage or history of. ROS: 19:50 Constitutional: Negative for fever, chills, and weight loss, Eyes: Negative for injury, mh7 pain, redness, and discharge, ENT: Negative for injury, pain, and discharge, Neck: Negative for injury, pain, and swelling, Cardiovascular: Negative for chest pain, palpitations, and edema, Respiratory: Negative for shortness of breath, cough, wheezing, and pleuritic chest pain, Abdomen/GI: Negative for abdominal pain, nausea, vomiting, diarrhea, and constipation, Back: Negative for injury and pain, : Negative for injury, bleeding, discharge, and swelling, Neuro: Negative for headache, weakness, numbness, tingling, and seizure, Psych: Negative for depression, anxiety, suicide ideation, homicidal ideation, and hallucinations, Allergy/Immunology: Negative for hives, rash, and allergies, Endocrine: Negative for neck swelling, polydipsia, polyuria, polyphagia, and marked weight changes, Hematologic/Lymphatic: Negative for swollen nodes, abnormal bleeding, and unusual bruising. Exam: 19:54 Constitutional: This is a well developed, well nourished patient who is awake, alert, mh7 and in no acute distress. Head/Face: Normocephalic, atraumatic. Neck: Trachea midline, no thyromegaly or masses palpated, and no cervical lymphadenopathy. Supple, full range of motion without nuchal rigidity, or vertebral point tenderness. No Meningismus. Chest/axilla: Normal chest wall appearance and motion. Nontender with no deformity. No lesions are appreciated. Cardiovascular: Regular rate and rhythm with a normal S1 and S2. No gallops, murmurs, or rubs. Normal PMI, no JVD. No pulse deficits. Respiratory: Lungs have equal breath sounds bilaterally, clear to auscultation and percussion. No rales, rhonchi or wheezes noted. No increased work of breathing, no retractions or nasal flaring. Abdomen/GI: Soft, non-tender, with normal bowel sounds. No distension or tympany. No guarding or rebound. No evidence of tenderness throughout. Back: No spinal tenderness. No costovertebral tenderness. Full range of motion. 19:54 Neuro: Awake and alert, GCS 15, oriented to person, place, time, and situation. Cranial nerves II-XII grossly intact. Motor strength 5/5 in all extremities. Sensory grossly intact. Cerebellar exam normal. Normal gait. Psych: Awake, alert, with orientation to person, place and time. Behavior, mood, and affect are within normal limits. 19:54 Musculoskeletal/extremity: Extremities: noted in the left hand web space between thumb and index finger: pain, puncture, tenderness, ROM: intact in all extremities, Circulation is intact in all extremities. Pulses: are normal with no appreciated deficits, Perfusion: the patient is normally perfused throughout, Perfusion: the extremity is normally perfused throughout, Sensation intact. Compartment Syndrome exam of affected extremity: is normal. no numbness, no tingling, no sensation deficit, no palor, no weak pulses, Joints: All joints appear normal with full range of motion. Weight bearing: able to fully bear weight, without difficulty, Tendon exam: specific tendon testing normal through active and passive range of motion 19:54 Skin: injury, puncture(s), that are superficial, of the left hand interspace between thumb and index finger. Vital Signs: 19:31 BP 164 / 90; Pulse 54; Resp 16 S; Temp 98.2(O); Pulse Ox 99% on R/A; Weight 112.49 kg bb (R); Height 6 ft. 3 in. (190.50 cm) (R); Pain 9/10; 20:00 BP 146 / 89; Pulse 52; Resp 16; Pulse Ox 98% on R/A; jb4 21:53 BP 162 / 89; Pulse 61; Resp 16; Pulse Ox 98% on R/A; Pain 0/10; mt2 19:31 Body Mass Index 31.00 (112.49 kg, 190.50 cm) bb MDM: 19:43 Patient medically screened. [facility] 21:40 Differential diagnosis: open fracture, closed fracture, abrasion, Puncture wound. Data [facility] reviewed: vital signs, nurses notes, radiologic studies, plain films. Data interpreted: Pulse oximetry: on room air is 98 %. Interpretation: normal. Counseling: I had a detailed discussion with the patient and/or guardian regarding: the historical points, exam findings, and any diagnostic results supporting the discharge/admit diagnosis, the presence of at least one elevated blood pressure reading (>120/80) during this emergency department visit, radiology results, the need for outpatient follow up, to return to the emergency department if symptoms worsen or persist or if there are any questions or concerns that arise at home. Response to treatment: the patient's symptoms have markedly improved after treatment. 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 Exp: jb4 07/17/2022. Lot #: [id number]. } Route: IM; Site: left deltoid; 21:55 Follow up: Response: No adverse reaction mt2 21:52 Drug: Ancef 1 grams Route: IM; Site: right gluteus; mt2 21:55 Follow up: Response: No adverse reaction mt2 Disposition: 12/31 03:31 Co-signature as Attending Physician, Daniel Garcia MD. 7 Disposition: 12/31/19 21:42 Discharged to Home. Impression: Puncture Wound Left Hand. - Condition is Stable. - Discharge Instructions: Puncture Wound, [id number]. - Prescriptions for Keflex 500 mg Oral Capsule - take 1 capsule by ORAL route every 8 hours for 7 days; 21 capsule. Tylenol- Codeine #3 300-30 mg Oral Tablet - take 2 tablets by ORAL route every 6 hours As needed; 20 tablet. - Medication Reconciliation Form, Thank You Letter, Antibiotic Education, Prescription Opioid Use form. - Follow up: Private Physician; When: 1 - 2 days; Reason: Worsening of condition, Recheck today's complaints, Continuance of care, Re-evaluation by your physician. Follow up: Emmanuel Joseph MD; When: 2 - 3 days; Reason: Worsening of condition, Recheck today's complaints. - Problem is new. - Symptoms have improved. Signatures: Dispatcher [employer] EDAgnes Montaño RN RN Raad Foote RN RN jb4 Daniel Garcia MD MD [facility] Lisha Paige RN RN mt2 Corrections: (The following items were deleted from the chart) 12/30 21:55 21:42 12/31/2019 21:42 Discharged to Home. Impression: Puncture Wound Left Hand. mt2 Condition is Stable. Forms are Medication Reconciliation Form, Thank You Letter, Antibiotic Education, Prescription Opioid Use. Follow up: Private Physician; When: 1 - 2 days; Reason: Worsening of condition, Recheck today's complaints, Continuance of care, Re-evaluation by your physician. Follow up: Emmanuel Joseph; When: 2 - 3 days; Reason: Worsening of condition, Recheck today's complaints. Problem is new. Symptoms have improved. mh7
[2019-12-31] MEDS ORDERED: CEFAZOLIN SODIUM 1 GM/VIAL ONE ×2 (21:55→22:01)
[2019-12-31] MEDS ORDERED: LIDOCAINE 1% MPF 2 ML AMPULE ONE (21:55)
[2019-12-31] MEDS ORDERED: WATER FOR INJ,STERILE 10 ML ONE (22:01)
[2019-12-31 22:03] VITALS: TEMP 98.2
[2019-12-31 22:04] VITALS: O2SAT 98
[2019-12-31 22:06] VITALS: BP 162/89
== END 2019-12-31 21:55 | disposition home or self-care (01) ==
LOC: ER 18:33
DX: S61.432A Puncture wound without foreign body of left hand, initial encounter (principal); W56.52XA Struck by other fish, initial encounter; Y93.89 Activity, other specified; Y92.830 Public park as the place of occurrence of the external cause; Z23 Encounter for immunization; Z79.82 Long term (current) use of aspirin; I10 Essential (primary) hypertension
CPT/HCPCS: 73120; 90714; J2001; J0690 ×2; 90471; 96372; 99284

== ENCOUNTER 2020-01-19 08:52 | Emergency (ER) | payer OTHER ==
--- OUTSIDE RECORDS SUMMARY | 2020-01-19 09:02 | XMS REPORT | Clinical Summary ---
:1950 Author Organization [facility] Address [address] [place] [address] Care Team Providers Name Role Phone Pcp, [...] Not on file Results Not on fileafter 01/18/2019 Insurance Payer Benefit Plan / Group Subscriber ID Type Phone A ddress MEDICARE MEDICARE PART A xxxxxxxxxx Medicare [employer] - D [facility] xxxxxxxxx CARE Advance Directives For more information, please contact:[place] [id number] [facility], [place], [place] [phone] Code Status Date Activated Date Inactivated Comments Full Code 04/28/2018 10:31 PM This code status was determined by: Patient
--- OUTSIDE RECORDS SUMMARY | 2020-01-19 09:02 | XMS REPORT | Continuity of Care Document ---
:1950 Author Organization [facility] t Address [address] [place] [address] Care Team Providers Name Role Phone Pcp Primary Care Physician Unavailable Brianna DURÁN Attending Clinician Unavailable Brianna DURÁN Admitting Clinician Unavailable Problems Condition Condition Condition Status Onset Resolution Last Treating Co mments Source Name Details Category Date Date Treatment Clinician Date Blurry Blurry Disease Active 2017-05 [facility] vision vision 06-29 [facility] - 00:00: Medical [address] [place] Allergies, Adverse Reactions, Alerts This patient has no known allergies or adverse reactions. Family History Family Member Diagnosis Comments Start Date Stop Date Source Natural brother Cancer [facility] Natural father COPD [facility] Natural father Heart disease [facility] Natural mother Heart disease [facility] Natural mother Kidney disease [facility] Natural sister Diabetes [facility] Natural sister Kidney disease [facility] Social History Social Habit Start Date Stop Date Quantity Comments Source Sex Assigned At [facility] Alcohol Comment 2018-04-28 2018-04-28 weekends [facility] 00:00:00 00:00:00 [facility] Smoking Status Start Date Stop Date Source Never smoker [facility] Medications Ordered Filled Start Stop Current Ordering Indication Dosage Frequency Signature Comments Components Source Medication Medication Date Date Medication? Clinician (SIG) Name Name tadalafil 2017-05 Yes 5mg QD Take 5 mg [facility] (CIALIS) 5 06-29 by mouth [facility] - MG tablet 22:40: daily. Medica l [address] [place] [address] aspirin 81 2017-05 Yes 81mg QD Take [address] MG EC 2-02 by mouth [facility] - tablet 22:36: daily. Medical [address] [place] benazepril 2017-05 Yes 40mg QD Take [address] (LOTENSIN) 2-02 by mouth [facility] - 40 MG 22:36: daily. Medical tablet 21 [place] amLODIPine 2017-05 Yes 10mg QD Take [address] (NORVASC) 2-02 by mouth [facility] - 10 MG 22:36: daily. Medical tablet 21 [place] hydroCHLORO 2017-05 Yes 12.5mg QD Take 12.5 [...] GRAM STAIN RESULT (BEAKER) (test code = 80072) No organisms seen [id number] 18:10:00Medical Cytology Report Case: [id number] Authorizing Provider: Sisi Haas Collected: 05/01/2018 1539 MD Sondra Ordering Location: [address] Received: 05/02/2018 1005 Service Pathologist: Beck Alvarez MD Specimen: CSF CEREBROSPINAL FLUID (CYT OSPINS): - NEGATIVE FOR MALIGNANCY Signing Pathologist Direct Phone Line: [phone] signed by Beck Alvarez MD on 05/02/2018 at 6:10 [id number] visionCEREBROSPINALFLUID0.5 mls colorless; 2 cytospinsCollected: [id number]: [id number] [facility], Department of Pathology, [address] [place] [address], [place] [address], [facility], Department of Pathology, [address] [place] [id number], [facility], [facility], [address] [place] [id number], HEOR CYTOMETRY [id number] 11:09:00 Test Item Value Reference Range Interpretation Comments FLOW CYTOMETRY RESULT See Separate Report POINTER (BEAKER) (test code = 2758) FLOW CYTOMETRY AP CASE # [id number] (BEAKER) (test code = 2759) FLOW [id number] 09:21:00Flow Cytometry Report Case: [id number] Authorizing Provider: Sisi Haas Collected: 05/01/2018 Юлия Amaro MD Ordering Location: [address] Received: 05/01/2018 0277 Service Pathologist: Sherwin Cardoza MD Specimen: Other CSF, FLOW CYTOMETRY:HEMATOLYMPHOID EVENTS ARE SCARCE.CORRELATION WITH MORPHOLOGIC FINDINGS REQUIRED.Electronically signedby Sherwin Cardoza MD on 05/02/2018 at 9:21 [id number] changesCSFCD8, surface-kappa, CD56, surface-lambda, CD5, CD19, CD10, CD3, CD20, CD4, [id number] Viability: 99.8% Blasts: Not identified.Lymphocytes: Bright CD45+ lymphocytes comprise less than 1% of total cells and are almost entirely comprised of T cells with a CD4:CD8 ratio of 3.7. B cells are virtually absent.Myeloid/monocytic populations: No significant population identified. The remaining events analyzed represent nonviable cells, non-hematolymphoid cells, and/or debris. These tests were developed and their performance charac teristics determined by [facility]. They have not been cleared or approved by the U.S. Food andDrug Administration. The FDA has determined that such clearance or approval is not necessary. It should not be regarded as investigational or for research. This laboratory is certified under the Clinical Laboratory Improvement Amendments of 1988 ("CLIA") as qualified to perform high- complexity clinical testing.GLUCOSE, [id number] 16:15:00 Test Item Value Reference Range Interpretation Comments GLUCOSE CSF (BEAKER) (test code = 56 mg/dL 40-70 406) PROTEIN, [id number] 16:15:00 Test Item Value Reference Range Interpretation Comments PROTEIN CSF (BEAKER) (test code = 37 mg/dL 15-45 378) CSF CELL COUNT [id number] 16:14:00 Test Item Value Reference Range Interpretation [...] = 2678) PERIPHERAL BLOOD SMEAR - HOLD [id number] 19:16:00 Test Item Value Reference Range Interpretation Comments PERIPHERAL SMEAR SAVE saved 2 smea rs are prepared (BEAKER) (test code = 1815) [id number] 18:45:00 Test Item Value Reference Range Interpretation Comments RPR SCREEN (BEAKER) (test code = Nonreactive Nonreactive 420) VITAMIN B12 AND [id number] 12:13:00 Test Item Value Reference Range Interpretation Comments VITAMIN B12 (BEAKER) (test code = 495 pg/mL 213-816 774) FOLATE (BEAKER) (test code = 362) 13.3 ng/mL >=7.0 MR, MRA, BRAIN, WITHOUT [id number] 11:54:00Reason for exam:->Ischemic Stroke EvaluationFINAL REPORT MRA Head CLINICAL HISTORY: Ischemic Stroke, blurry vision, acute/subacute infarct right internal capsule on CT TECHNIQUE: MRA of the head utilizing 3-D tflj-og-tprvnq technique, with 3-D reconstructions. COMPARISON: None FINDINGS: There is no evidence for a [place] proximal branch vessel occlusion. There is origin of the right posterior cerebral artery. No aneurysms are seen. IMPRESSION: No evidence for a major [place] proximal branch vessel occlusion. MRA Neck CLINICAL HISTORY: Ischemic Stroke, blurry vision, acute/subacute infarct right internal capsule on CT TECHNIQUE: MRA of the neck utilizing 2-D and 3-D qrqp-uo-vrmrki technique, with 3-D reconstructions. COMPARISON: None FINDINGS: The carotid arteries in the neck are patent including their bifurcations. There is antegrade flow in the vertebral arteries in the neck. IMPRESSION: No evidence of hemodynamically significant stenosis in the cervical carotid or vertebral arteries by NASCET criteria. Signed: Kathy Shrestha Verified Date/Time: 04/29/2018 11:54:27 Reading Location: [address] Neuro Reading Room MR, MRA, NECK, WITHOUT IV [id number] 11:54:00Reason for exam:->Ischemic Stroke EvaluationFINAL REPORT MRA Head CLINICAL HISTORY: Ischemic Stroke, blurry vision, acute/subacute infarct right internal capsule on CT TECHNIQUE: MRA of the head utilizing 3-D stma-tq-lsbpxo technique, with 3-D reconstructions. COMPARISON: None FINDINGS: There is no evidence for a [place] proximal branch vessel occlusion. There is origin of the right posterior cerebral artery. No aneurysms are seen. IMPRESSION: No evidence for a major [place] of [place] proximal branch vessel occlusion. MRA Neck CLINICAL HISTORY: Ischemic Stroke, blurry vision, acute/subacute infarct right internal capsule on CT TECHNIQUE: MRA of the neck utilizing 2-D and 3-D tdtb-ul-ntspuj technique, with 3-D reconstructions. COMPARISON: None FINDINGS: The carotid arteries in the neck are patent including their bifurcations. There is antegrade flow in the vertebral arteries in the neck. IMPRESSION: No evidence of hemodynamically significant stenosis in the cervical carotid or vertebral arteries by NASCET criteria. Signed: Kathy Shrestha Verified Date/Time: 04/29/2018 11:54:27 Reading Location: [address] Neuro Reading Room MR, BRAIN, WITHOUT [id number] 11:48:00Reason for exam:->Ischemic Stroke EvaluationFINAL REPORT MRI [...] MDReport Verified Date/Time: 04/29/2018 11:48:33 Reading Location: [facility] C013 Neuro Reading Room HEMOGLOBIN [id number] 10:00:00 Test Item Value Reference Range Interpretation Comments HEMOGLOBIN A1C (BEAKER) (test code = 5.3 % 4.3-6.1 368) TSH/FREE T4 IF [id number] 06:05:00 Test Item Value Reference Range Interpretation Comments THYROID STIMULATING HORMONE 2.26 uIU/mL 0.35-4.94 (BEAKER) (test code = 772) LIPID [id number] 05:45:00 Test Item Value Reference Range Interpretation [...] 130-159 High 160-189 Very High >=190BASIC METABOLIC [id number] 05:45:00 Test Item Value Reference Range Interpretation [...] PATIEN TS. CBC W/PLT COUNT & AUTO [id number] 05:13:00 Test Item Value Reference Range Interpretation [...] % 0-1 PERCENT (BEAKER) (test code = 5941)
[2020-01-19 09:37] LABS: Absolute Lymphocytes (CBC) 1.2 K/uL (0.7-4.9); Basophils % 0.6 % (0-1.3); Hematocrit 45.7 % (39.6-49.0); Lymphocytes % 16.2 % (15.3-44.8); MPV 9.2 fL (7.6-11.3); RBC Red Blood Cell Count 5.71 M/uL (4.33-5.43)
[2020-01-19 09:50] LABS: Potassium 3.6 mmol/L (3.5-5.1)
--- NOTE | 2020-01-19 09:56 | EDPHYS ---
Physician Documentation [facility] Name: Caleb Palacios Age: 69 yrs Sex: Male : 1950 Arrival Date: 01/19/2020 Time: 08:56 Bed 20 Private MD: ED Physician Charanjit Castro HPI: 01/18 09:16 This 69 yrs old Male presents to ER via Ambulatory with complaints of cp Swelling in Jaw - Knots. 09:16 Patient reports being injured by nakul of catfish while [employer] fishing on 12-31-2019. cp Injury was puncture wound to thumb and index finger web space of left hand. Patient reports he was seen in [facility] ED later that day given RXs for pain medication and Keflex antibiotic. Patient reports finishing Keflex 5 days ago. Historical: - Allergies: 09:05 No Known Allergies; hb - Home Meds: 09:05 aspirin 81 mg Oral chew 1 tab once daily [Active]; amlodipine 10 mg tab 1 tab once hb daily [Active]; benazepril Oral [Active]; hydrochlorothiazide 12.5 mg Oral tab 1 tab once daily [Active]; - PMHx: 09:05 Hypertension; Pre-Glaucoma; hb - PSHx: 09:05 right eye surgery; C5; right knee; hb - Immunization history:: Adult Immunizations up to date. - Social history:: Smoking status: Patient denies any tobacco usage or history of. ROS: 09:20 Constitutional: Negative for body aches, chills, fever, poor PO intake. cp 09:20 Cardiovascular: Negative for chest pain. cp 09:20 Respiratory: Negative for cough, shortness of breath, wheezing. 09:20 Skin: Positive for of the chest, right hand and neck, nodules. cp Exam: 09:25 Constitutional: The patient appears in no acute distress, alert, awake, non-toxic, well cp developed, well nourished. 09:25 Skin: rash can be described as erythematous, nodules, on the chest, right hand and cp neck, tender. Vital Signs: 09:01 BP 151 / 90; Pulse 63; Resp 16; Temp 97.2; Pulse Ox 100% on R/A; Weight 112.49 kg; hb Height 6 ft. 3 in. (190.50 cm); Pain 2/10; 09:40 BP 151 / 83; Pulse 55; Resp 20; Pulse Ox 98% on R/A; Pain 2/10; jr10 09:01 Body Mass Index 31.00 (112.49 kg, 190.50 cm) hb MDM: 09:16 Patient medically screened. cp 09:30 Differential diagnosis: cellulitis, abscess. cp 09:54 Data reviewed: vital signs, nurses notes, old medical records, notes from previous cp visit and as a result, I will discharge patient. 09:54 Counseling: I had a detailed discussion with the patient and/or guardian regarding: the cp historical points, exam findings, and any diagnostic results supporting the discharge/admit diagnosis, the need for outpatient follow up, a family practitioner, to return to the emergency department if symptoms worsen or persist or if there are any questions or concerns that arise at home. 01/18 09:16 Order name: CBC with Diff; Complete Time: 09:42 cp 01/18 09:42 Interpretation: Normal except: RBC 5.71. cp 01/18 09:16 Order name: BMP; Complete Time: 09:51 cp 01/18 09:51 Interpretation: Normal except: CL 108; BUN 20; GFR 70. cp Administered Medications: No medications were administered Disposition: 10:10 Chart complete. cp 13:56 Co-signature as Attending Physician, Charanjit Castro MD I agree with the assessment and kdr plan of care. Disposition: 01/19/20 09:55 Discharged to Home. Impression: Rash and other nonspecific skin eruption. - Condition is Stable. - Discharge Instructions: Puncture Wound. - Prescriptions for Doxycycline Hyclate 100 mg Oral Tablet - take 1 tablet by ORAL route every 12 hours; 20 tablet. - Medication Reconciliation Form, Thank You Letter, Antibiotic Education, Prescription Opioid Use form. - Follow up: Private Physician; When: 2 - 3 days; Reason: Recheck today's complaints. - Problem is new. - Symptoms are unchanged. Signatures: Dispatcher [employer] EDMS Charanjit Castro MD MD [facility] Rashard Mancera PA PA cp Mary Lou Pearce, RAY RN Marni Peña RN RN jr10 Corrections: (The following items were deleted from the chart) 10:08 09:55 01/19/2020 09:55 Discharged to Home. Impression: Rash and other nonspecific skin jr10 eruption. Condition is Stable. Forms are Medication Reconciliation Form, Thank You Letter, Antibiotic Education, Prescription Opioid Use. Follow up: Private Physician; When: 2 - 3 days; Reason: Recheck today's complaints. Problem is new. Symptoms are unchanged. cp
--- NOTE | 2020-01-19 09:56 | ER ---
Nurse's Notes [facility] Name: Caleb Palacios Age: 69 yrs Sex: Male : 1950 Arrival Date: 01/19/2020 Time: 08:56 Bed 20 Private MD: Diagnosis: Rash and other nonspecific skin eruption Presentation: 01/18 09:01 Chief complaint: Seen in ED on 12/30 for saltwater catfish nakul in left hand, reports hb left sided facial swelling and palpable nodules in neck and wrist x 4- 5 days. Completed Keflex 5 days ago. Coronavirus screen: At this time, the client does not indicate any symptoms associated with coronavirus-19. Ebola Screen: No symptoms or risks identified at this time. Initial Sepsis Screen: Does the patient meet any 2 criteria? No. Patient's initial sepsis screen is negative. Does the patient have a suspected source of infection? No. Patient's initial sepsis screen is negative. Risk Assessment: Do you want to hurt yourself or someone else? Patient reports no desire to harm self or others. Onset of symptoms was January 15, 2020. 09:01 Method Of Arrival: Ambulatory hb 09:01 Acuity: ADONIS 3 hb Historical: - Allergies: 09:05 No Known Allergies; hb - Home Meds: 09:05 aspirin 81 mg Oral chew 1 tab once daily [Active]; amlodipine 10 mg tab 1 tab once hb daily [Active]; benazepril Oral [Active]; hydrochlorothiazide 12.5 mg Oral tab 1 tab once daily [Active]; - PMHx: 09:05 Hypertension; Pre-Glaucoma; hb - PSHx: 09:05 right eye surgery; C5; right knee; hb - Immunization history:: Adult Immunizations up to date. - Social history:: Smoking status: Patient denies any tobacco usage or history of. Screenin:30 Abuse screen: Denies threats or abuse. Denies injuries from another. Nutritional jr10 screening: No deficits noted. Tuberculosis screening: No symptoms or risk factors identified. Fall Risk IV access (20 points). Assessment: 09:30 General: Appears in no apparent distress. Behavior is calm, cooperative, appropriate jr10 for age. Pain: Complains of pain in left sternocleidomastoid Pain does not radiate. Pain currently is 2 out of 10 on a pain scale. at worst was 6 out of 10 on a pain scale. Neuro: No deficits noted. Level of Consciousness is awake, alert, obeys commands, Oriented to person, place, time, situation, Appropriate for age. Respiratory: Airway is patent Respiratory effort is even, unlabored, Respiratory pattern is regular, symmetrical, Breath sounds are clear bilaterally. EENT: No deficits noted. No signs and/or symptoms were reported regarding the EENT system. Derm: No deficits noted. Musculoskeletal: Range of motion: intact in all extremities, Swelling present in left sternocleidomastoid. Vital Signs: 09:01 BP 151 / 90; Pulse 63; Resp 16; Temp 97.2; Pulse Ox 100% on R/A; Weight 112.49 kg; hb Height 6 ft. 3 in. (190.50 cm); Pain 2/10; 09:40 BP 151 / 83; Pulse 55; Resp 20; Pulse Ox 98% on R/A; Pain 2/10; jr10 09:01 Body Mass Index 31.00 (112.49 kg, 190.50 cm) ED Course: 08:56 Patient arrived in ED. ds1 09:00 Rashard Mancera PA is PHCP. cp 09:00 Chavez Redman MD is Attending Physician. cp 09:01 Attending Physician role handed off by Chavez Redman MD cp 09:01 Charanjit Castro MD is Attending Physician. cp 09:04 Triage completed. hb 09:05 Marni Peña, RAY is Primary Nurse. jr10 09:05 Arm band placed on. hb 09:30 Patient has correct armband on for positive identification. Bed in low position. Call jr10 light in reach. Side rails up X 1. Pulse ox on. NIBP on. 09:30 No provider procedures requiring assistance completed. Inserted saline lock: 20 gauge jr10 in right forearm, using aseptic technique. IV is patent, is intact, with good blood return, Flushed. 10:08 IV discontinued, intact, bleeding controlled, No redness/swelling at site. Pressure jr10 dressing applied. Administered Medications: No medications were administered Outcome: 09:55 Discharge ordered by . cp 10:08 Discharged to home ambulatory. jr10 10:08 Condition: good 10:08 Discharge instructions given to patient, Instructed on discharge instructions, follow up and referral plans. Demonstrated understanding of instructions, follow-up care, medications, Prescriptions given X 1. 10:08 Patient left the ED. jr10 Signatures: Tabitha Oviedo ds1 Rashard Mancera PA PA cp Baxter, Heather, RN RN Marni Peña RN RN jr10
== END 2020-01-19 10:08 | disposition home or self-care (01) ==
LOC: ER 08:52
DX: R21 Rash and other nonspecific skin eruption (principal); I10 Essential (primary) hypertension; Z79.82 Long term (current) use of aspirin
CPT/HCPCS: 36415; 80048; 85025; 99283